=== PATIENT | male | born 1985 | race American Indian/Alaskan Native ===

== ENCOUNTER 2022-05-08 15:22 | Emergency (ER) | payer SELFPAY ==
--- NOTE | 2022-05-08 18:19 | Emergency Department Report ---
ED Lower Extremity HPI - General Chief Complaint: Extremity Problem,Nontraumatic Stated Complaint: BUSTED VARICASE VEIN IN LEFT LEG Time Seen by Provider: 05/08/22 17:04 Source: patient, EMS Mode of arrival: Ambulatory Limitations: No Limitations - History of Present Illness Initial Comments: 36-year-old male with history of multiple varicose veins presents to the emergency department with a "busted varicose veins".. Patient reports that he was got out of the shower this morning when he noticed that one of the varicose veins busted and started bleeding pressure dressing applied, he denies pain, weakness numbness or paresthesia, he denies use of blood thinners, he denies fall or injury he denies blood or clotting disorder, he does not see a vascular surgeon at this time. -: Sudden Type of Injury: unknown Place: home Severity: mild Treatments Prior to Arrival: bandage - Related Data Allergies Allergy/AdvReac Type Severity Reaction Status Date / Time Sulfa (Sulfonamide Allergy Unknown Verified 05/08/22 15:36 Antibiotics) ED Review of Systems ROS: Stated complaint: BUSTED VARICASE VEIN IN LEFT LEG Other details as noted in HPI Constitutional: no symptoms reported ENT: as per HPI Respiratory: denies: cough Cardiovascular: denies: chest pain, palpitations Endocrine: denies: excessive sweating Gastrointestinal: denies: abdominal pain, nausea Genitourinary: denies: urgency Skin: rash. denies: change in color Neurological: denies: headache Hematological/Lymphatic: denies: easy bleeding, easy bruising, swollen glands ED Past Medical Hx - Past Medical History Previous Medical History?: Yes Additional medical history: Varicose vein ED Physical Exam - General Limitations: No Limitations General appearance: alert, in no apparent distress - Eye Eye exam: Present: normal appearance - ENT ENT exam: Present: normal exam, normal orophraynx - Neck Neck exam: Present: normal inspection - Respiratory Respiratory exam: Present: normal lung sounds bilaterally. Absent: respiratory distress - Cardiovascular Cardiovascular Exam: Present: regular rate, normal rhythm - GI/Abdominal GI/Abdominal exam: Present: soft - Extremities Exam Extremities exam: Present: normal inspection, full ROM, other (Patient has diffuse varicose veins to his lower extremities, the area in question bleeding has resolved, no swelling, no hematoma, no ecchymosis) - Back Exam Back exam: Present: normal inspection, full ROM - Neurological Exam Neurological exam: Present: alert, oriented X3, CN II-XII intact, normal gait. Absent: motor sensory deficit - Psychiatric Psychiatric exam: Present: normal affect, normal mood - Skin Skin exam: Present: warm ED Course Vital Signs 05/08/22 15:22 Temperature 97.7 F Pulse Rate 80 Respiratory 18 Rate Blood Pressure 154/90 [Left] O2 Sat by Pulse 98 Oximetry ED Lower Extremity MDM - Medical Decision Making Atraumatic spontaneous rupture of his varicose veins, bleeding controlled, l his vital signs are stable, ambulating steadily, no pain. Patient is discharged home with follow-up w with referral to vascular surgeon. Patient remained stable nontoxic-appearing, afebrile, ambulating steadily without assistance. Gone over ED findings with patient as well as plan for follow-up. Also discussed return precautions with patient, all questions and concerns addressed. Patient is stable to be discharged follow-up outpatient. Audio voice dictation device used, hence the chart might contain some dictation errors, mispronunciations, wrong spelling and wrong verbiage. Critical care attestation.: If time is entered above; I have spent that time in minutes in the direct care of this critically ill patient, excluding procedure time. ED Disposition Clinical Impression: Ruptured varicose vein Disposition: HOME / SELF CARE / HOMELESS Is pt being admited?: No Does the pt Need Aspirin: No Condition: Stable Instructions: Varicose Veins Additional Instructions: [facility].0 (3) [facility] [address] Closed ? Opens 8AM Mon Medicare accepted Referrals: PRIMARY CAREMD [Primary Care Provider] - 3-5 Days
[2022-05-08 20:28] VITALS: BP 157/96
== END 2022-05-08 20:29 | disposition home or self-care (01) ==
LOC: ED 15:22
DX: I83.892 Varicose veins of left lower extremity with other complications (principal); Z98.890 Other specified postprocedural states; Z88.2 Allergy status to sulfonamides
CPT/HCPCS: 99283